=== PATIENT | female | born 1970 | race Caucasian/White ===

== ENCOUNTER 2020-06-05 02:43 | Emergency (ER) | payer MEDICARE, OTHER ==
[~2020-06-05 02:43] MED LIST: AMBIEN10 MG PO; ATENOLOL25 MG PO; BENTYL 20MG TAB20 MG PO; BUSPAR 10MG10 MG PO; CELEXA40 MG PO; COUMADIN 7.5MG7.5 MG PO; ESTRACE0.5 MG PO; FLAGYL500 MG PO; GABAPENTIN600 MG PO; IBU800 MG PO; LODINE CAP 300300 MG PO; NORVASC5 MG PO; OMNICEF 300 MG300 MG PO; PEPCID20 MG PO; PERCOCET 5-3251 EACH PO; PHENERGAN 25 MG25 M1 PO; PHENERGAN12.5 MG PR; PRAVASTATIN SOD40 MG PO; PREDNISONE 20 M20 MG PO; PREDNISONE20 MG PO; PROTONIX 40 MG40 M1 PO; SINGULAIR10 MG PO; SUMATRIPTAN SUC25 MG PO; TOPAMAX 100 MG100 MG PO; XANAX1 MG PO; ZANAFLEX4 MG PO; ZOFRAN ODT 4 MG4 MG PO
[2020-06-05 03:45] LABS: HEMOGLOBIN 11.9 gm/dl (12.3-15.3); RED BLOOD COUNT 3.82 M/UL (4.00-5.10); WHITE BLOOD COUNT 7.5 K/UL (4.5-11.0)
[2020-06-05 04:14] LABS: BUN/CREATININE RATIO 18 (0-10)
== END 2020-06-05 08:07 | disposition home or self-care (01) ==
LOC: ER1 02:43
PROVIDERS: Family Medicine
DX: K50.90 Crohn's disease, unspecified, without complications (principal); R07.9 Chest pain, unspecified; M54.6 Pain in thoracic spine; D64.9 Anemia, unspecified; F17.200 Nicotine dependence, unspecified, uncomplicated; Z86.2 Personal history of diseases of the blood and blood-forming organs and certain disorders involving the immune mechanism; Z86.711 Personal history of pulmonary embolism; Z96.0 Presence of urogenital implants; Z90.49 Acquired absence of other specified parts of digestive tract; Z20.822 Contact with and (suspected) exposure to COVID-19
CPT/HCPCS: 71045; 80053; 81001; 82550; 82553; 83690; 83874; 84484; 85025; 85379; 85610; 85730; 93005; 96374; 96375; 96376; 99285; J2405; J2550; Q9967; U0002

== ENCOUNTER 2020-11-16 21:24 | Emergency (ER) | payer MEDICARE, OTHER ==
[2020-11-16 21:57] LABS: HEMOGLOBIN 11.2 gm/dl (12.3-15.3); RED BLOOD COUNT 3.29 M/UL (4.00-5.10); WHITE BLOOD COUNT 7.4 K/UL (4.5-11.0)
[2020-11-16 22:15] LABS: BUN/CREATININE RATIO 17 (0-10)
[2020-11-17] MEDS ORDERED: AUGMENTIN 875-1 EACH PO (00:03)
[2020-11-17] MEDS ORDERED: PREDNISONE 20 M20 MG PO (00:03)
[2020-11-17] MEDS ORDERED: ZOFRAN ODT 4 MG4 MG SL (00:03)
[2020-11-17] MEDS ORDERED: BENTYL 20MG TAB20 MG PO (00:03)
== END 2020-11-17 00:15 | disposition home or self-care (01) ==
LOC: ER1 21:24
PROVIDERS: Emergency Medicine
DX: R10.9 Unspecified abdominal pain (principal); R30.0 Dysuria; R06.02 Shortness of breath; Z88.5 Allergy status to narcotic agent
CPT/HCPCS: 80053; 81001; 83690; 84484; 85025; 85379; 85610; 85730; 87086; 96374; 99284; J3010; Q9967

== ENCOUNTER → 2021-05-17 | Outpatient (CLI) | payer MEDICARE, OTHER ==
[~2021-05-17] VITALS: Ht 157.5 cm; Wt 93.4 kg
[~2021-05-17] MED LIST changes: +AUGMENTIN 875-1 EACH PO; +ZOFRAN ODT 4 MG4 MG SL
[2021-05-17 09:41] LABS: HEMOGLOBIN 11.3 gm/dl (12.3-15.3); RED BLOOD COUNT 3.63 M/UL (4.00-5.10); WHITE BLOOD COUNT 8.9 K/UL (4.5-11.0)
[2021-05-17 10:10] LABS: BUN/CREATININE RATIO 16 (0-10)
== END ==
LOC: OPSV 08:56
PROVIDERS: Dietitian, Registered
DX: K50.012 Crohn's disease of small intestine with intestinal obstruction (principal)
CPT/HCPCS: 36415; 80053; 85025; 86140; 96365; J3358; J7050

== ENCOUNTER 2021-09-28 15:25 | Emergency (ER) | payer MEDICARE, OTHER ==
[~2021-09-28 15:25] MED LIST changes: +CARAFATE 1 GM TA1 GM PO; +CITALOPRAM HBR40 MG PO; +COMPAZINE 10MG10 MG PO; +IMODIUM CAP 2 MG2 MG PO; +LIORESAL TAB 1010 MG PO; +OMEPRAZOLE40 MG PO; +PERCOCET 5/325 T1 EA PO; +POTASSIUM CHLO20 ME2 PO; +PREDNISONE 10 M10 MG PO; +STELARA90 MG/1 ML SQ; +SUMATRIPTAN SU100 MG PO; +WARFARIN SODIUM5 MG PO; +WARFARIN SODIUM6 MG PO; +ZYLOPRIM 300 M300 MG PO
[2021-09-28 16:35] LABS: HEMOGLOBIN 11.6 gm/dl (12.3-15.3); RED BLOOD COUNT 3.42 M/UL (4.00-5.10); WHITE BLOOD COUNT 6.5 K/UL (4.5-11.0)
[2021-09-28 16:59] LABS: BUN/CREATININE RATIO 15 (0-10)
[2021-09-28] MEDS ORDERED: PHENERGAN 25 MG25 M1 PO ×2 (18:57→19:04)
[2021-09-28] MEDS ORDERED: AMOX TR-K CLV1 EAC4 PO ×2 (18:57→19:04)
[2021-09-28] MEDS ORDERED: PREDNISONE 20 M20 MG PO ×2 (18:57→19:04)
[2021-09-28] MEDS ORDERED: HYDROCODON-ACE1 EAC4 PO ×2 (18:57→19:04)
== END 2021-09-28 19:50 | disposition home or self-care (01) ==
LOC: ER1 15:25
PROVIDERS: Student in an Organized Health Care Education/Training Program
DX: K50.90 Crohn's disease, unspecified, without complications (principal); Z95.0 Presence of cardiac pacemaker; Z88.1 Allergy status to other antibiotic agents; Z88.5 Allergy status to narcotic agent; F17.210 Nicotine dependence, cigarettes, uncomplicated
CPT/HCPCS: 80053; 82550; 82553; 83690; 84484; 85025; 93005; 96374; 96375; 96376; 99284; J1170; J2405; Q9967

== ENCOUNTER 2022-01-22 13:42 | Emergency (ER) | payer MEDICARE, OTHER ==
[~2022-01-22 13:42] MED LIST changes: +AMOX TR-K CLV1 EAC4 PO; +HYDROCODON-ACE1 EAC4 PO
[2022-01-22 15:15] LABS: HEMOGLOBIN 11.8 gm/dl (12.3-15.3); RED BLOOD COUNT 3.47 M/UL (4.00-5.10)
[2022-01-22 15:32] LABS: ADENOVIRUS F 40/41 Not Detected (Negative); ASTROVIRUS Not Detected (Negative); CAMPYLOBACTER Not Detected (Negative); CRYPTOSPORIDIUM Not Detected (Negative); E.COLI 0157 Not Detected (Negative); ENTAMOEBA HISTOLYTICA Not Detected (Negative); ENTEROAGGREGATIVE E.COLI (EAEC Not Detected (Negative); ENTEROPATHOGENIC E.COLI (EPEC) Not Detected (Negative); ENTEROTOXIGENIC E.COLI (ETEC) Not Detected (Negative); GIARDIA LAMBLIA Not Detected (Negative); NOROVIRUS GI/GII Not Detected (Negative); PLESIOMONAS SHIGELLOIDES Not Detected (Negative); ROTOVIRUS A Not Detected (Negative); SALMONELLA Not Detected (Negative); SAPOVIRUS Not Detected (Negative); SHIG/ENTEROINVAS.ECOLI (EIEC) Not Detected (Negative); SHIGA-LIK TOX.PRO.E.COLI (STEC Not Detected (Negative); VIBRIO Not Detected (Negative); VIBRIO CHOLERAE Not Detected (Negative); YERSINIA ENTEROCOLITICA Not Detected (Negative)
[2022-01-22 15:47] LABS: BUN/CREATININE RATIO 14 (0-10)
[2022-01-22 17:07] LABS: CLOSTRIDIUM DIFFICILE TOX A/B Not Detected (Negative)
[2022-01-22] MEDS ORDERED: K-TAB ER20 MEQ PO (17:13)
[2022-01-22] MEDS ORDERED: PHENERGAN 25 MG25 M1 PO (17:13)
== END 2022-01-22 17:06 | disposition home or self-care (01) ==
LOC: ER1 13:42
PROVIDERS: Physician Assistant
DX: K50.90 Crohn's disease, unspecified, without complications (principal); I10 Essential (primary) hypertension; F17.200 Nicotine dependence, unspecified, uncomplicated; Z88.5 Allergy status to narcotic agent; Z88.8 Allergy status to other drugs, medicaments and biological substances; Z90.49 Acquired absence of other specified parts of digestive tract; Z90.710 Acquired absence of both cervix and uterus; Z20.822 Contact with and (suspected) exposure to COVID-19
CPT/HCPCS: 0240U; 80053; 81001; 82550; 82553; 83605; 83690; 84484; 85025; 85610; 86140; 87040; 87086; 87507; 96361; 96374; 96375; 96376; 99284; J1170; J2405; Q9967

== ENCOUNTER → 2022-01-24 | Outpatient (CLI) | payer MEDICARE, OTHER ==
[~2022-01-24] MED LIST changes: +K-TAB ER20 MEQ PO
== END ==
LOC: OPSV 12:00
DX: K50.012 Crohn's disease of small intestine with intestinal obstruction (principal)
CPT/HCPCS: 96365; J3358; J7050